=== PATIENT | male | born 1945 | race Caucasian/White ===

== ENCOUNTER → 2018-06-24 | Outpatient (CLI) | payer BC ==
[~2018-06-24] MED LIST: ALLO300T PO; AMLO10TA8 PO; ASPI-630 PO; CARV25TA2 PO; FURO40TA4 PO; HYDR-3165 PO; MULT-505 PO; OMEG1CAP38 PO; POTA20TA82 PO; TRAM50TA PO; UBID100C26 PO; VITA1TAB3 PO; WARF-31 PO; WARF3TAB54 PO; ZICAM NAS
[2018-06-24 09:44] LABS: BASO % 0 % (0-3); EOS # 0.3 x10^3/uL (0.0-0.7); EOS % 3 % (0-3); HEMATOCRIT 50.3 % (39.0-53.0); HEMOGLOBIN 16.9 g/dL (13.0-17.5); LYMPH % 21 % (24-48); MEAN CORPUSCULAR HEMOGLOBIN 32 pg (25-35); MEAN CORPUSCULAR HGB CONC 34 g/dL (31-37); MEAN CORPUSCULAR VOLUME 95 fL (79-100); MONO # 0.9 x10^3/uL (0.0-1.1); MONO % 10 % (0-9); NEUT # 6.5 x10^3uL (1.8-7.7); NEUT % 67 % (31-73); PLATELET COUNT 174 x10^3/uL (140-400); RED BLOOD COUNT 5.28 x10^6/uL (4.30-5.70); RED CELL DISTRIBUTION WIDTH 15.2 % (11.5-14.5); WHITE BLOOD COUNT 9.7 x10^3/uL (4.0-11.0)
[2018-06-24 09:57] LABS: CALCIUM 9.2 mg/dL (8.5-10.1); GFR 73.9; POTASSIUM 3.3 mmol/L (3.5-5.1)
[2018-06-24 09:59] LABS: PROTHROMBIN TIME PATIENT 12.5 SEC (11.7-14.0)
--- NOTE | 2018-06-24 13:18 | EKG ---
[facility] [address] [place] [address] Test Date: 2018-06-24 Test Time: 12:57:51 Pat Name: JAYESH FERNANDES Department: Room: Gender: M Grounds And Nursery Specialist: : [id number] Requested By: DEIDRE NERI Order Number: [id number] Reading MD: Denny Barker MD Measurements Intervals [place] Rate: 76 P: 29 LA: 172 QRS: 31 QRSD: 76 T: 25 QT: 386 QTc: 439 Interpretive Statements SINUS RHYTHM consider anteroseptal infarct Electronically Signed On 06-27-2018 13:15:27 CDT by Denny Barker MD
[2018-06-24 13:44] LABS: BILIRUBIN,URINE NEGATIVE (NEG); CLARITY,URINE CLEAR; COLOR,URINE YELLOW; NITRITE,URINE NEGATIVE (NEG); PH,URINE 5.5; PROTEIN,URINE NEGATIVE (NEG-TRACE); UROBILINOGEN,URINE 0.2 mg/dL (0.2 mg/dL)
[2018-06-24 14:02] LABS: BACTERIA,URINE FEW /HPF (0-FEW); RBC,URINE RARE /HPF (0-2); SQUAMOUS EPITHELIAL CELL,UR OCC /LPF; WBC,URINE OCC /HPF (0-4)
[2018-06-24 14:03] LABS: HYALINE CASTS, URINE MODERATE /HPF
--- NOTE | 2018-06-24 14:47 | RAD ---
CHEST PA LATERAL History: Preoperative evaluation-left knee replacement. Hypertension. Comparison: 05/20/2012 two-view chest x-ray exam. Findings: The cardiomediastinal silhouette is normal. Pulmonary vasculature is normal. The lungs are clear. No pleural effusion or pneumothorax is seen. There is no acute bone abnormality. IMPRESSION: No acute cardiopulmonary process. Electronically signed by: Jed Gentile MD (06/24/2018 2:44 PM) [facility]
== END | disposition home or self-care (01) ==
LOC: SURGPAT 13:00
PROVIDERS: ATTEND Orthopaedic Surgery
DX: Z01.818 Encounter for other preprocedural examination (principal); M17.12 Unilateral primary osteoarthritis, left knee; I10 Essential (primary) hypertension
CPT/HCPCS: 36415; 71046; 80048; 81001; 82040; 82306; 85025; 85610; 85651; 85730; 87641; 93005

== ENCOUNTER 2018-07-09 06:07 | Inpatient (IN) | payer BC ==
[2018-07-08] MEDS: TRANEXAMIC ACID 1,000 MG in IV NS 50ML -- 1ST BAG INJ ONE (07:41)
[2018-07-09] VITALS (10 sets, daily range): BP systolic 121–159; BP diastolic 80–88
[~2018-07-09] VITALS: Ht 152.4 cm; Wt 116.0 kg
[~2018-07-09 06:07] MED LIST changes: -HYDR-3165 PO; +HYDROcodone/APAP 7.5/325MG 1 TAB TABLET PO PRN; +MORPHINE SULFATE 5 MG, KETOROLAC 30MG VIAL 30 MG, ROPIVacaine 0.5% PF 60 ML, EPINEPHrin... INT ART ONE; -WARF-31 PO; -WARF3TAB54 PO
[2018-07-09] MEDS ORDERED: IV RINGERS,LACTATED 1000ML 1,000 ML IV SCH ×2 (06:16→07:00)
[2018-07-09] MEDS ORDERED: fentaNYL PF VIAL 100 MCG/2 ML VIAL IV PRN ×5 (06:30→08:00)
[2018-07-09] MEDS ORDERED: LIDOCAINE 1% PF 2 ML VIAL. ID PRN ×2 (06:30→07:00)
[2018-07-09] MEDS ORDERED: MIDAZOLAM HCL/PF 2 MG/2 ML VIAL. IV PRN (06:30)
[2018-07-09] MEDS ORDERED: POTA20TA82 PO (06:41)
[2018-07-09] MEDS ORDERED: WARF-31 PO (06:43)
[2018-07-09] MEDS ORDERED: LIDOCAINE 2% PF 5 ML VIAL. ONE (06:58)
[2018-07-09] MEDS ORDERED: PROPOFOL 20 ML IV ONE (06:58)
[2018-07-09] MEDS ORDERED: FAMOTIDINE 20 MG/2 ML VIAL ONE (06:58)
[2018-07-09] MEDS ORDERED: ONDANSETRON PF 4 MG/2 ML VIAL. ONE ×2 (06:58)
[2018-07-09] MEDS ORDERED: DEXAMETHASONE SOD PHOS 4 MG/ML VIAL ONE ×2 (06:58)
[2018-07-09] MEDS ORDERED: ONDANSETRON PF 4 MG/2 ML VIAL. IV PRN (07:00)
[2018-07-09] MEDS ORDERED: PROCHLORPERAZINE 10 MG/2 ML VIAL. IV PRN (07:00)
[2018-07-09] MEDS ORDERED: SUCCINYLCHOLINE 200 MG/10 ML VIAL. ONE (07:01)
[2018-07-09] MEDS ORDERED: fentaNYL PF VIAL 100 MCG/2 ML VIAL ONE ×2 (07:01→09:50)
[2018-07-09] MEDS ORDERED: ROCURONIUM 50 MG/5 ML VIAL. ONE (07:01)
[2018-07-09] MEDS ORDERED: IV NORMAL SALINE 1000ML BAG 1,000 ML IV SCH (07:47)
[2018-07-09] MEDS ORDERED: diphenhydrAMINE 50 MG/ML VIAL IV PRN (08:00)
[2018-07-09] MEDS ORDERED: PROCHLORPERAZINE 5 MG TABLET. PO PRN (08:00)
[2018-07-09] MEDS ORDERED: HYDROmorphone 2 MG TABLET PO PRN (08:00)
[2018-07-09] MEDS: FERROUS SULFATE 325 MG TABLET. PO SCH ×2 (08:00→17:01)
[2018-07-09] MEDS ORDERED: MORPHINE SULFATE 2 MG/ML VIAL. IV PRN (08:00)
[2018-07-09] MEDS ORDERED: TRANEXAMIC ACID 1,000 MG in IV NS 50ML -- 2ND BAG INJ ONE (08:00)
[2018-07-09] MEDS ORDERED: ZOLPIDEM 5 MG TABLET. PO PRN (08:00)
[2018-07-09] MEDS ORDERED: 0.9 % SODIUM CHLORIDE 10 ML DISP.SYRIN. IV PRN (08:00)
[2018-07-09] MEDS ORDERED: MORPHINE SULFATE 4 MG/ML VIAL. IV PRN (08:00)
[2018-07-09] MEDS: TRANEXAMIC ACID 1,000 MG in IV NS 50ML -- 1ST BAG INJ ONE (08:00)
[2018-07-09] MEDS ORDERED: CALCIUM CARBONATE 500 MG TAB.CHEW PO PRN (08:00)
[2018-07-09] MEDS ORDERED: DEXTROSE 50% 25 GM / 50ML DISP.SYRIN. IV PRN (08:00)
[2018-07-09] MEDS ORDERED: ePHEDrine PF IN SALINE 50 MG/10 ML SYRINGE. IV ONE (08:07)
[2018-07-09] MEDS: SENNOSIDES/DOCUSATE 8.6/50MG TABLET. PO SCH (09:00)
[2018-07-09] MEDS: MULTIVITAMIN with MINERAL TABLET. PO SCH (09:00)
[2018-07-09] MEDS ORDERED: NEOSTIGMINE METHYLSULFATE 5 MG/5 ML SYRINGE. ONE (09:33)
[2018-07-09] MEDS ORDERED: GLYCOPYRROLATE 1 MG/5 ML VIAL. ONE (09:33)
[2018-07-09] MEDS ORDERED: DESFLURANE > 120 MINUTES IH ONE (09:50)
--- NOTE | 2018-07-09 09:51 | PREOP HP ---
DATE OF SERVICE: 07/09/2018 CHIEF COMPLAINT: Bilateral knee pain, left worse than right. HISTORY OF PRESENT ILLNESS: The patient has had longstanding bilateral knee pain. We had previously talked in his clinical note through risks, benefits, postoperative course of total knee arthroplasty and he is here to proceed today. PAST MEDICAL HISTORY: Significant for hypertension, gout, venous insufficiency, impotence, osteoarthritis, lymphedema, and a right kidney lesion. PAST SURGICAL HISTORY: Meniscus repair on the right knee and appendectomy. FAMILY HISTORY: Noncontributory. SOCIAL HISTORY: Denies smoking. Occasional alcohol consumption and previous marijuana use. MEDICATIONS: List is reviewed. ALLERGIES: Include OXYCODONE. REVIEW OF SYSTEMS: Denies any chest pain, shortness of breath, recent fever, chills or other constitutional symptoms. He took his Coumadin last night. PHYSICAL EXAMINATION: VITAL SIGNS: Per admission sheet, temp afebrile. HEENT: Atraumatic, normocephalic. HEART: Regular rate and rhythm. LUNGS: Clear to auscultation bilaterally. ABDOMEN: Benign. EXTREMITIES: Examination of lower extremities, he has varus deformity, left worse than right. No ligamentous instability; joint line tenderness, medial more so than lateral; severe patellofemoral crepitus bilaterally; normal alignment and stability of bilateral hips and ankles. ASSESSMENT: Bilateral knee pain, left worse than right, primary osteoarthritis of both knees. TREATMENT PLAN: I had previously gone over with him risks, benefits, postoperative course of total knee arthroplasty, recovery process, concerns with possible infection, continued pain, premature wear or loosening, nerve or blood vessel damage, medical or other anesthetic complications among others. He wishes to proceed with left total knee arthroplasty today, which will occur with [facility] admission to follow. DEIDRE NERI MD DR: CRISTHIAN/bere JOB#: [id number] / [id number]
--- NOTE | 2018-07-09 10:05 | PDOC4 ---
Operative Note Operative Note Date of surgery: 07/09/2018 Preoperative diagnosis: Degenerative joint disease left knee Postoperative diagnosis: Same Operative procedure: Left total knee arthroplasty Surgeon: Danny Assist: Swapna Babin anesthesia: Gen. Estimated blood loss: 50 mL Complications: None Specimens: Cartilage surfaces to pathology Operative indications: Tim is a 72-year-old male with bilateral total knee pain long-standing in duration unresponsive to nonoperative measures left worse than right. I had previously discussed with him in clinic operative measures of the total knee arthroplasty and along with risks benefits postoperative course of possible infection nerve or blood vessel damage continued pain premature wear or loosening medical or anesthetic complications among others which were reviewed with him today in conjunction with his updated history and physical he agrees to proceed with surgical evaluation and treatment. Operative text: Patient was identified procedure verified patient placed in the supine position on the operating table. After adequate amounts of general anest hesia were administered a thigh tourniquet was placed and the left upper extremity was prepped and draped in standard sterile fashion. After timeout was performed patient procedure identified and verified the left leg was exsanguinated by Esmarch bandage tourniquet inflated to 250 mm mercury and a midline incision was made and a medial parapatellar approach was carried out fat pad was excised he had significant synovitis which was excised and a synovectomy. Femoral intramedullary drill guide was placed in a standard distal cut femur was sized at a size 7 and anterior posterior chamfer cuts were made menisci were excised tibial cut was initially made but really cut to achieve medial lateral balance as a large medial release was performed but he still remained laterally somewhat loose. After the recut he had perfect balance in flexion and extension as well as side to side with a 15 mm trial. A size 6 journey tibial trial component was placed broached and drilled and a size 35 mm patella was medialized and excess bone trimmed to avoid impingement. Excellent balance and patellofemoral tracking was noted trial components were removed bleeding points controlled by electrocautery and the following components were cemented in place with polymethylmethacrylate cement: A size 6 journey tibial tray a size 7 Oxinium cruciate retaining femoral component and a 35 mm resurfacing patella. Size 15 mm spacer was temporarily placed with the leg in extension after excess cement was removed and following confirmation of the placement and balance a 15 mm spacer was then permanently placed. Thorough irrigation again carried out normal saline solution Hemovac drain and pain catheter were placed. Pain catheter mixture was injected throughout the joint capsule and retinaculum was closed with interrupted #2 Ethibond suture and reinforced with a running #1 strata fix PDS suture subcutaneous closure with buried Vicryl suture subcuticular 30 strata fix Monocryl a carolina dressing with Acticoat was placed toes were noted be warm pink following deflation of the tourniquet patient was returned to recovery room in stable condition having tolerated procedure well. Swapna sapp was present for the procedure assisted in the prepping draping and skin closure. DEIDRE NERI MD July 09, 2018 10:05
--- NOTE | 2018-07-09 11:00 | RAD ---
KNEE LEFT 2V History: Postop.. Comparison with 05/13/2018. There has been a left knee replacement. No aggressive bone destruction or large fracture is seen. Alignment appears grossly anatomic. Postoperative air identified at the joint. Surgical drain is identified. There are vascular calcifications. IMPRESSION: Left knee replacement. Electronically signed by: Chester Hu MD (07/09/2018 10:57 AM) [facility]
--- NOTE | 2018-07-09 11:49 | NUR ---
received from pacu; he is drowsy but answers questions before resuming sleep. he is rating his pain 5/10. ISABELLE and Hemovac and IAC intact. he has good sensation, motion, and pulses bilateral lower extremities. No family present. contact info obtained. 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 close to the desk.
[2018-07-09] MEDS ORDERED: ZICAM NAS PRN (12:00)
[2018-07-09] MEDS: ONDANSETRON ODT 4 MG TAB.RAPDIS. PO SCH ×2 (12:00→17:08)
[2018-07-09] MEDS: ONDANSETRON PF 4 MG/2 ML VIAL. IV SCH ×2 (12:04→17:07)
[2018-07-09] MEDS ORDERED: WARFARIN 7.5 MG TABLET. PO ONE (16:00)
[2018-07-09] MEDS: POTASSIUM CHLORIDE 20 MEQ TABLET.ER. PO SCH (17:01)
[2018-07-09] MEDS: KETOROLAC 30MG VIAL 30 MG, BUPIVACAINE MPF 0.25% 20 ML, EPINEPHrine 0.5 MG in TOTAL VOL... INT ART SCH (17:02)
[2018-07-09] MEDS: CARVEDILOL 12.5 MG TABLET. PO SCH (17:02)
[2018-07-09] MEDS: HYDROcodone/APAP 7.5/325MG 1 TAB TABLET PO PRN (17:07)
--- NOTE | 2018-07-09 18:09 | NUR ---
Papa is feeling better; medicated with Zofran. tolerated supper. up in recliner watching tv. he nausea has eased. continues to rate his pain 4-5.
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
[2018-07-10 02:45] VITALS: BP 130/79
[2018-07-10 05:36] LABS: HEMATOCRIT 43.4 % (39.0-53.0); HEMOGLOBIN 14.7 g/dL (13.0-17.5)
[2018-07-10 05:39] LABS: PROTHROMBIN TIME PATIENT 15.1 SEC (11.7-14.0)
[2018-07-10] MEDS: GABAPENTIN 100 MG CAPSULE. PO SCH ×2 (05:56→17:40)
[2018-07-10] MEDS: KETOROLAC 30MG VIAL 30 MG, BUPIVACAINE MPF 0.25% 20 ML, EPINEPHrine 0.5 MG in TOTAL VOL... INT ART SCH (05:57)
[2018-07-10] MEDS: ONDANSETRON ODT 4 MG TAB.RAPDIS. PO SCH ×2 (05:57)
[2018-07-10] MEDS: ONDANSETRON PF 4 MG/2 ML VIAL. IV SCH ×2 (05:57)
[2018-07-10] MEDS: traMADol 50 MG TABLET PO SCH ×4 (05:57→23:54)
[2018-07-10] MEDS ORDERED: MAGNESIUM HYDROXIDE 2,400 MG/30 ML ORAL.SUSP. PO PRN (06:00)
[2018-07-10 06:31] VITALS: BP 122/73
--- NOTE | 2018-07-10 07:17 | PDOC ---
ORTHO PROGRESS NOTES Subjective Patient states feeling well with minimal complaint of pain. Post-op Day: 1 Procedure L TKA Vitals Vital Signs Date Time Temp Pulse Resp B/P (MAP) Pulse Ox O2 Delivery O2 Flow Rate FiO2 07/10/18 06:59 18 94 Room Air 07/10/18 06:31 98.0 73 122/73 (89) 98.0 07/09/18 19:50 94.0 Labs Laboratory Tests Test 07/09/18 06:45 07/10/18 04:10 07/10/18 04:20 Prothrombin Time 13.0 SEC (11.7-14.0) 15.1 SEC (11.7-14.0) Prothromb Time International Ratio 1.0 (0.8-1.1) 1.2 (0.8-1.1) Activated Partial Thromboplast Time 31 SEC (24-38) Hemoglobin 14.7 g/dL (13.0-17.5) Hematocrit 43.4 % (39.0-53.0) Mean Corpuscular Hemoglobin Concent 34 g/dL (31-37) Laboratory Tests Test 07/10/18 04:10 07/10/18 04:20 Hemoglobin 14.7 g/dL (13.0-17.5) Hematocrit 43.4 % (39.0-53.0) Mean Corpuscular Hemoglobin Concent 34 g/dL (31-37) Prothrombin Time 15.1 SEC (11.7-14.0) Prothromb Time International Ratio 1.2 (0.8-1.1) Notes awake and alert sitting up in chair at bedside Assessment and Plan POD #1 S/P L TKA motor and sensory intact distally calf soft and nontender Pain control and PT CRISS MORA APRN July 10, 2018 07:17
[2018-07-10] MEDS: SENNOSIDES/DOCUSATE 8.6/50MG TABLET. PO SCH (07:56)
[2018-07-10] MEDS: ACETAMINOPHEN 500 MG TABLET PO SCH ×3 (07:56→21:42)
[2018-07-10] MEDS: MULTIVITAMIN with MINERAL TABLET. PO SCH (07:56)
[2018-07-10] MEDS: ASPIRIN CHEWABLE 81 MG TABLET. PO SCH (07:56)
[2018-07-10] MEDS: FUROSEMIDE 40 MG TABLET. PO SCH (07:56)
[2018-07-10] MEDS: ALLOPURINOL 300 MG TABLET. PO SCH (07:56)
[2018-07-10] MEDS: amLODIPine BESYLATE 10 MG TABLET PO SCH (07:57)
[2018-07-10] MEDS: POTASSIUM CHLORIDE 20 MEQ TABLET.ER. PO SCH ×2 (07:57→16:29)
[2018-07-10] MEDS: FERROUS SULFATE 325 MG TABLET. PO SCH ×2 (07:57→16:29)
[2018-07-10] MEDS: CARVEDILOL 12.5 MG TABLET. PO SCH ×2 (07:58→16:30)
[2018-07-10 08:01] VITALS: BP 152/83
[2018-07-10] MEDS: HYDROcodone/APAP 7.5/325MG 1 TAB TABLET PO PRN ×3 (08:46→19:37)
--- NOTE | 2018-07-10 09:05 | NUR ---
Dr. Delgado here to see, questions answered regarding potential travel in [place]
[2018-07-10] MEDS ORDERED: ONDANSETRON ODT 4 MG TAB.RAPDIS. PO PRN (12:00)
[2018-07-10] MEDS ORDERED: ONDANSETRON PF 4 MG/2 ML VIAL. IV PRN (12:00)
--- NOTE | 2018-07-10 13:12 | NUR ---
Pharmacy Warfarin Dosing Note S:Pharmacy consulted to assist with anticoagulation therapy started 07/09/18 with target INR: 1.6 - 2.5 O:JAYESH FERNANDES is a 72 year old M with TKA LABS: Last INR: 1.2 Last HGB: 14.7 Last HCT: 43.4 Last PLT: Last dose of 7.5 mg given on 07/09/18 at 1701 Previous Regimen: Vitamin K given: Drug Interaction Changes: Ongoing Drug Interactions: A:INR of 1.2 is below desired range. Target range for this patient is: 1.6 - 2.5 P: Warfarin dose: 5 mg Today at 1600 Bridge Therapy: None Next INR due 07/11/18 Pharmacy anticoagulation service will continue to follow. CLAUS MORGAN [facility], 07/10/18 5502
--- NOTE | 2018-07-10 15:06 | PATHOLOGY ---
[facility] Accession Number: [id number] . 01 Material submitted: . knee - LEFT KNEE BONE. Modifiers: left . 01 Clinical history: . L DJD . 02 Diagnosis: Segments of bone and soft tissue, left total knee arthroplasty: - Advanced degenerative arthritis. (JPM:[facility] 07/10/2018) QTP/07/10/2018 . 02 Electronically signed: . Heraclio Lizarraga MD, Pathologist NPI- [id number] . 01 Gross description: . The specimen is received in formalin, labeled "Jeffery Mendoza, left knee bone" and consists of multiple segments of pink-cuba bone including the tibial plateau with a small amount of attached yellow tissue measuring 14.0 x 12.3 x 2.5 cm in aggregate. The articular surfaces display areas of eburnation. Osteophytes are present. The meniscus is not identified. Manager Of Regulatory Affairs sections are submitted in A1 following decalcification. (SDY; 07/09/2018) SYU/SYU . 02 Pathologist provided ICD-10: M17.12 . 02 CPT . 633696, [id number] Specimen Comment: A courtesy copy of this report has been sent to Specimen Comment: [phone], . Specimen Comment: Report sent to / DR SOTO Performed at: 01 [facility] [address] [facility] [address] [address], [place] [id number] MD Herman Ansari MD Phone: [phone] Performed at: 02 [facility] [address] [place], [place] [id number] MD Heraclio Lizarraga MD Phone: [phone]
--- NOTE | 2018-07-10 15:09 | NUR ---
Hemovac & IAC discontinued per order, foam dressing applied, tolerated procedure well, GUNJAN hose applied, legs elevated, ice pack on for comfort & edema
[2018-07-10] MEDS ORDERED: WARFARIN 5 MG TABLET. PO ONE (16:00)
[2018-07-10] MEDS ORDERED: BISACODYL 10 MG SUPP.RECT. PR PRN (16:00)
[2018-07-10 16:28] VITALS: BP 139/88
[2018-07-10 17:37] VITALS: BP 136/79
[2018-07-11] MEDS: ACETAMINOPHEN 500 MG TABLET PO SCH ×4 (03:00→20:44)
[2018-07-11 04:08] LABS: HEMATOCRIT 40.9 % (39.0-53.0); HEMOGLOBIN 13.8 g/dL (13.0-17.5)
[2018-07-11 04:15] LABS: PROTHROMBIN TIME PATIENT 21.5 SEC (11.7-14.0)
[2018-07-11] MEDS: GABAPENTIN 100 MG CAPSULE. PO SCH (05:57)
[2018-07-11] MEDS: traMADol 50 MG TABLET PO SCH ×3 (05:57→18:00)
[2018-07-11 06:00] VITALS: BP 145/83
[2018-07-11] MEDS ORDERED: MAGNESIUM HYDROXIDE 2,400 MG/30 ML ORAL.SUSP. PO PRN (08:15)
[2018-07-11] MEDS ORDERED: POLYETHYLENE GLYCOL 3350 17 GM PACKET. PO PRN (08:15)
[2018-07-11 08:18] VITALS: BP 144/88
[2018-07-11] MEDS: FERROUS SULFATE 325 MG TABLET. PO SCH ×2 (08:19→16:09)
[2018-07-11] MEDS: POTASSIUM CHLORIDE 20 MEQ TABLET.ER. PO SCH ×2 (08:19→16:12)
[2018-07-11] MEDS: amLODIPine BESYLATE 10 MG TABLET PO SCH (08:19)
[2018-07-11] MEDS: SENNOSIDES/DOCUSATE 8.6/50MG TABLET. PO SCH (08:19)
[2018-07-11] MEDS: CARVEDILOL 12.5 MG TABLET. PO SCH ×2 (08:20→16:09)
[2018-07-11] MEDS: MULTIVITAMIN with MINERAL TABLET. PO SCH (08:20)
[2018-07-11] MEDS: FUROSEMIDE 40 MG TABLET. PO SCH (08:20)
[2018-07-11] MEDS: ALLOPURINOL 300 MG TABLET. PO SCH (08:20)
[2018-07-11] MEDS: ASPIRIN CHEWABLE 81 MG TABLET. PO SCH (08:21)
--- NOTE | 2018-07-11 11:02 | NUR ---
Pharmacy Warfarin Dosing Note S:Pharmacy consulted to assist with anticoagulation therapy started 07/09/18 with target INR: 1.6 - 2.5 O:JAYESH FERNANDES is a 72 year old M with TKA LABS: Last INR: 1.9 Last HGB: 13.8 Last HCT: 40.9 Last PLT: Last dose of 5 mg given on 07/10/18 at 1629 Previous Regimen: Vitamin K given: Drug Interaction Changes: Ongoing Drug Interactions: A:INR of 1.9 is within desired range. Target range for this patient is: 1.6 - 2.5 P: Warfarin dose: 2 mg Today at 1600 Bridge Therapy: None Next INR due 07/12/18 Pharmacy anticoagulation service will continue to follow. CLAUS MORGAN [facility], 07/11/18 [id number]
[2018-07-11] MEDS ORDERED: WARFARIN 2 MG TABLET. PO ONE (16:00)
[2018-07-11 16:08] VITALS: BP 130/79
[2018-07-11] MEDS: HYDROcodone/APAP 7.5/325MG 1 TAB TABLET PO PRN ×2 (16:09→19:59)
[2018-07-11 17:32] VITALS: BP 124/81
[2018-07-12] MEDS: traMADol 50 MG TABLET PO SCH ×3 (00:16→11:24)
[2018-07-12] MEDS: ACETAMINOPHEN 500 MG TABLET PO SCH ×3 (03:00→14:41)
[2018-07-12 04:59] LABS: HEMATOCRIT 39.2 % (39.0-53.0); HEMOGLOBIN 13.1 g/dL (13.0-17.5)
[2018-07-12 05:06] LABS: PROTHROMBIN TIME PATIENT 21.6 SEC (11.7-14.0)
[2018-07-12 06:00] VITALS: BP 149/86
[2018-07-12] MEDS: FERROUS SULFATE 325 MG TABLET. PO SCH (07:46)
[2018-07-12] MEDS: ASPIRIN CHEWABLE 81 MG TABLET. PO SCH (07:46)
[2018-07-12] MEDS: FUROSEMIDE 40 MG TABLET. PO SCH (07:46)
[2018-07-12] MEDS: SENNOSIDES/DOCUSATE 8.6/50MG TABLET. PO SCH (07:46)
[2018-07-12] MEDS: CARVEDILOL 12.5 MG TABLET. PO SCH (07:49)
[2018-07-12 07:50] VITALS: BP 164/92
[2018-07-12] MEDS: amLODIPine BESYLATE 10 MG TABLET PO SCH (07:50)
[2018-07-12] MEDS: MULTIVITAMIN with MINERAL TABLET. PO SCH (07:51)
[2018-07-12] MEDS: POTASSIUM CHLORIDE 20 MEQ TABLET.ER. PO SCH (07:52)
[2018-07-12] MEDS: ALLOPURINOL 300 MG TABLET. PO SCH (07:52)
[2018-07-12] MEDS: HYDROcodone/APAP 7.5/325MG 1 TAB TABLET PO PRN (12:04)
[2018-07-12] MEDS ORDERED: BISACODYL 10 MG SUPP.RECT. PR PRN (13:15)
[2018-07-12] MEDS ORDERED: WARFARIN 3 MG TABLET. PO ONE (15:00)
--- NOTE | 2018-07-12 15:46 | PDOC ---
PROGRESS NOTES Subjective Subjective Delayed entry from 07/11/2018 Problems overnight: A bit more sore than yesterday and alternating hydrocodone and tramadol for pain Objective Vital Signs Vital Signs Date Time Temp Pulse Resp B/P (MAP) Pulse Ox O2 Delivery O2 Flow Rate FiO2 07/12/18 13:05 Room Air 07/12/18 07:50 83 164/92 07/12/18 06:09 20 07/12/18 06:00 99.8 95 99.8 07/09/18 19:50 94.0 Physical Exam Sylvia dressing intact he has excellent range of motion patellofemoral tracking intact distal neurovascular status, quadriceps weakness as expected Labs Laboratory Tests Test 07/11/18 03:10 07/12/18 04:15 Hemoglobin 13.8 g/dL (13.0-17.5) 13.1 g/dL (13.0-17.5) Hematocrit 40.9 % (39.0-53.0) 39.2 % (39.0-53.0) Mean Corpuscular Hemoglobin Concent 34 g/dL (31-37) 34 g/dL (31-37) Prothrombin Time 21.5 SEC (11.7-14.0) 21.6 SEC (11.7-14.0) Prothromb Time International Ratio 1.9 (0.8-1.1) 1.9 (0.8-1.1) Laboratory Tests Test 07/12/18 04:15 Hemoglobin 13.1 g/dL (13.0-17.5) Hematocrit 39.2 % (39.0-53.0) Mean Corpuscular Hemoglobin Concent 34 g/dL (31-37) Prothrombin Time 21.6 SEC (11.7-14.0) Prothromb Time International Ratio 1.9 (0.8-1.1) Assessment Assessment POD# [2], S/P [left total knee arthroplasty] Plan Plan of Care Continue mobilize with physical therapy standard total knee precautions Likely to need home health as he has little help at home Continue Coumadin anticoagulation, hemoglobin stable DEIDRE NERI MD July 12, 2018 15:46
[2018-07-12] MEDS ORDERED: HYDR-3165 PO (15:50)
--- NOTE | 2018-07-12 15:52 | SNU/HH DC ---
DISCHARGE WITH HOME HEALTH DISCHARGE INFORMATION: Condition on Discharge: Stable CODE STATUS: Code Status: Full HOME HEALTH: Face to Face: I certify this patient is under my care and that I, or a nurse practitioner or physician's recycling assistant working with me, had a face to face encounter that meets the physician face to face encounter requirements with this patient on [07/12/2018]. RN For Eval/Treatment: Yes Physical Therapy For: Evalulation/Treatment Pt Meets Homebound Status: Limited distance walking POST DISCHARGE ORDERS: Activity Instructions for Disc: Progressive ambulation Weight Bearing Status after Di: Full weight bearing Bathing Instructions: Shower-keep dressing dry DIET AFTER DISCHARGE: Regular Wound/Incision Care: Ice to area for comfort, Do not change dressing (maintain isabelle dressing, call if drainage is soaking the visible portion of the dressing) Other wound/incision instructi: DO NOT CHANGE ISABELLE DRESSING. It is to remain in place for 2 weeks. FOLLOW-UP: Follow Up With: Dr Delgado in 10-14 days CERTIFICATION STATEMENT: Certification Statement: Certification Statement: Based on the above finding, I certify that this patient is confined to the home and needs intermittent assisted care, physical therapy and/or speech therapy, or continues to need occupational therapy.~ This patient is under my care, and I have initiated the establishment of the plan of care.~ This patient will be followed by myself or a community physician who will periodically review the plan of care. Home Meds Reported Medications Warfarin Sodium (WARFARIN SODIUM) 5 Mg Tablet, 5 MG PO ONCE for BLOOD THINNER FOR SURGERY, #30 TAB 07/09/18 Potassium Chloride (POTASSIUM CHLORIDE) 20 Meq Tablet.er, 20 MEQ PO BID for POTASSIUM SUPPLEMENT, TAB.SR 07/09/18 Vitamin B Complex (VITAMIN B COMPLEX) 1 Each Tablet, 1 EACH PO DAILY for SUPPLEMENT, TAB 06/21/18 Ubidecarenone (COQ-10) 100 Mg Capsule, 200 MG PO DAILY for SUPPLEMENT, CAP 06/21/18 [place]-3 Fatty Acids/Fish Oil (OMEGA 3 FISH OIL SOFTGEL) 1 Each Capsule.dr, 1 EACH PO DAILY for SUPPLEMENT, CAP 06/21/18 Multivitamin (ONCE DAILY) 1 Each Tablet, 1 EACH PO DAILY for SUPPLEMENT, TAB 06/21/18 Tramadol Hcl (TRAMADOL HCL) 50 Mg Tablet, 50 MG PO Q6HRS PRN for PAIN, TAB 06/21/18 Carvedilol (CARVEDILOL) 25 Mg Tablet, 25 MG PO BIDWMEALS for CARDIAC, TAB 06/21/18 Furosemide (FUROSEMIDE) 40 Mg Tablet, 40 MG PO DAILY for DIURETIC, TAB 06/21/18 Amlodipine Besylate (AMLODIPINE BESYLATE) 10 Mg Tablet, 10 MG PO DAILY for CONTROL BLOOD PRESSURE, TAB 06/21/18 Allopurinol (ALLOPURINOL) 300 Mg Tablet, 300 MG PO DAILY for CONTROL GOUT, TAB 06/21/18 Aspirin (ASPIRIN) 81 Mg Tab.chew, 81 MG PO DAILY for BLOOD THINNER, TAB.CHEW 06/21/18 [Zicam] No Conflict Check, 2 INHALER PHILL PRN PRN for SEE COMMENTS 06/21/18 Discontinued Reported Medications Potassium Chloride (POTASSIUM CHLORIDE) 20 Meq Tablet.er, 20 MEQ PO DAILY for POTASIUM SUPPLEMENT, TAB.SR 06/21/18 DEIDRE DELGADO MD July 12, 2018 15:51
[2018-07-12] MEDS ORDERED: WARF3TAB54 PO (16:09)
--- NOTE | 2018-07-12 16:50 | NUR ---
Patient left the building with all of his belongings around 1650. He left in a private vehicle. Discharge education was completed by this nurse, therapy, pharmacy, and his doctor. No concerns noted upon discharge. Script for norco given to the patient.
--- NOTE | 2018-07-13 00:03 | DS ---
DATE OF DISCHARGE: 07/12/2018 PRINCIPAL DIAGNOSIS: Degenerative joint disease, left knee. PROCEDURE: Left total knee arthroplasty. DISCHARGE: Home with home health follow. DISPOSITION MEDICATIONS: Include [place] 7.5/325 one p.o. q. 4 hours p.r.n. pain, dispensed #60. Coumadin is to be monitored by Anticoagulation Clinic. Maintain preoperative medications. ACTIVITIES: Weightbearing as tolerated, standard total knee protocol and precautions. Maintain ISABELLE drain. Call if edges of dressing are saturated, any fever, chills, redness, uncontrolled pain or other problems. Follow up with Dr. Delgado in 2 weeks postoperatively. BRIEF DESCRIPTION OF HOSPITAL COURSE: The patient underwent uncomplicated left total knee arthroplasty. Immediately postoperatively, was needing IV pain medications. On postoperative day #1, noted that his pain was much better controlled. The knee felt better than it did preoperatively and he was well controlled on oral pain medication. He got up and around well with physical therapy and knee motion advanced well. On postoperative day #2, he was more sore and requiring a combination of hydrocodone and tramadol for alternating for pain relief. Hemoglobin remained stable. Coumadin anticoagulation was monitored by the pharmacy and on postoperative day #3, he had some continued stiffness and was planned for discharge with home health due to some assistance that he needs in his home and inability to reliably get out and drive or go to outpatient physical therapy. It was noted that he did need inpatient admission due to his history of hypertension, lymphedema, venous insufficiency and a right kidney lesion, all of which in my judgment underwent required inpatient monitoring. He was discharged in stable condition with planned home health. DEIDRE DELGADO MD DR: CRISTHIAN/bere JOB#: [id number] / [id number] Chester Henry MD
== END 2018-07-12 16:50 | disposition home health service (06) | DRG 470 ==
LOC: OPSVCIP 06:07 → 4 SOUTHEST 11:17
PROVIDERS: ADMIT Orthopaedic Surgery; ATTEND Orthopaedic Surgery
PROC: 0SRD069 Replacement of Left Knee Joint with Oxidized Zirconium on Polyethylene Synthetic Substitute, Cemented, Open Approach (ICD-10-PCS; principal; 2018-07-09 07:30)
DX: M17.0 Bilateral primary osteoarthritis of knee (principal); I10 Essential (primary) hypertension; M65.9 Synovitis and tenosynovitis, unspecified; Z90.49 Acquired absence of other specified parts of digestive tract; Z88.8 Allergy status to other drugs, medicaments and biological substances
CPT/HCPCS: 36415; 73560; 85014; 85018; 85610; 85730; 86850; 86900; 86901; 88305; 88311; A7015; C1713; J0171; J0330; J0696; J0780; J1100; J1885; J2001; J2270; J2405; J2704; J2710; J2795; J3010; J3490; J7030; J7120; Q0162; 97116; 97150; 97530; 97535; C1769

== ENCOUNTER → 2021-03-21 | Outpatient (CLI) | payer BC ==
[~2021-03-21] MED LIST changes: +AMLO-187 PO; -AMLO10TA8 PO; +HYDR-3165 PO; -HYDROcodone/APAP 7.5/325MG 1 TAB TABLET PO PRN; -MORPHINE SULFATE 5 MG, KETOROLAC 30MG VIAL 30 MG, ROPIVacaine 0.5% PF 60 ML, EPINEPHrin... INT ART ONE; +POTA20TA4 PO; -POTA20TA82 PO; +REGADENOSON 0.4 MG/5 ML DISP.SYRIN. IV ONE; +WARF-31 PO; +WARF3TAB54 PO
--- NOTE | 2021-03-21 13:10 | RAD ---
MR#: [id number] Date of Study: 03/21/2021 Ordering Physician: DMITRIY MAGUIRE, Referring Physician: RENÉ GONZALEZ Tech: RT Rolando Landon) (N) APPROVED REPORT Test Type: Pharmacological Stress Nurse/Tech: Yasemin Torres R.N. Test Indications: chest pain Cardiac History: Htn,obese Medications: See Electronic Medical Record Medical History: See Electronic Medical Record Resting ECG: SR Resting Heart Rate: 70 bpm Resting Blood Pressure: 128/74mmHg Pretest Chest Pain: No chest pain Nurse/Tech Notes S1S2, lungs CTA Consent: The procedure was explained to the patient in lay terms. Informed consent was witnessed. Jose F eout was entered into [facility]ml[facility]. History and Stress Test performed by RT Barbi (R) (N) Pharm. Details Pharmacologic stress testing was performed using 0.4mg per 5ml of regadenoson given intravenously ove r 7-10 seconds. Stress Symptoms SOA POST EXERCISE Reason for Termination: Infusion complete Max HR: 101 bpm Max Blood Pressure: 133/78mmHg Blood Pressure response to exercise: Normal blood pressure response during stress. Heart Rate response to exercise: wnl Chest Pain: No. Arrhythmia: No. ST Change: No. INTERPRETATION Stress EKG Conclusion: The resting EKG shows a sinus rhythm with mild nonspecific ST-T wave changes. The stress EKG shows no significant changes from baseline. No EKG evidence of stress-induced ischemia. Imaging Protocol IMAGE PROTOCOL: Rest Tc-99m/stress Tc-99m 1 day Rest: Stress: Viability: Radiopharm.Tc99m KvsneltxiJp94p Sestamibi Dose10.4mCi 30mCi Duration 15min. 10min. Img Date 03/21/2021 03/21/2021 Inj-Img Gbml58cue. 60min. Rest Admin Site:IV - Left HandAdministrator:ANDREW Shaw, ARRT (R)(N) Stress Admin Site: IV - Left HandAdministrator: ANDREW Shaw, ARRT (R)(N) STRESS DATA End Diast. Vol.81.0mlAv. Heart Rate82.0bpm End Syst. Vol.15.0mlCO Index BSA0.0L/min Myocardial Bhqb339.0gEject. Hgxviytx34.0% Stress Rates Pk. Fill Rate4.01EDV/secLVtime Pk. Fill 202.64msec Pk. Empty Rate5.12ESV/secLVtime Pk. Sylpb303.44msec 1/3 Pk. Fill1.03EDV/sec Stress Scores Regional WT1.00Summed WT8.00 Regional WM0.00Summed WM1.00 LV Perfusion The stress scans showed no significant defects. The rest scans showed no significant defects. Nuclear imaging shows no reversible ischemia or infarct. Wall Motion Left ventricular systolic function is normal with an ejection fraction of greater than 70%. LV Perf. Quant 17 Seg. SSS5.00 17 Seg. SRS3.00 17 Seg. SDS2.00 Stress Defect Extent (% LAD)0.00Rest Defect Extent (% LAD)0.00Rev. Defect Extent (% LAD)0.00 Stress Defect Extent (% LCX) 45.00Rest Defect Extent (% LCX)25.00Rev. Defect Extent (% LCX)5.00 Stress Defect Extent (% RCA)0.00Rest Defect Extent (% RCA)0.00Rev. Defect Extent (% RCA)0.00 Stress Defect Extent (% REINA)8.70Rest Defect Extent (% REINA)5.00Rev. Defect Extent (% REINA)0.90 Conclusion 1. No EKG evidence of stress-induced ischemia. 2. Nuclear imaging shows no reversible ischemia or infarct. 3. Normal left ventricular systolic function with an ejection fraction of greater than 70%. 4. Low risk Lexiscan nuclear stress test. Signed by : Kenny Gallego MD Electronically Approved : 03/21/2021 13:10:28
--- NOTE | 2021-03-22 17:19 | CARD ---
MR#: [id number] Date of Study: 03/21/2021 Ordering Physician: DMITRIY MAGUIRE, Referring Physician: Linda GONZALEZ: Francisco Brandt [facility] APPROVED REPORT EXAM: Two-dimensional and M-mode echocardiogram with Doppler and color Doppler. Other Information Quality : FairHR: 77bpm Rhythm : NSR INDICATION Chest Pain RISK FACTORS Hypertension Obesity 2D DIMENSIONS Left Atrium(2D)3.6 (1.6-4.0cm)IVSd1.1 (0.7-1.1cm) Aortic Root(2D)3.2 (2.0-3.7cm)LVDd4.7 (3.9-5.9cm) LVOT Diameter2.3 (1.8-2.4cm)PWd1.1 (0.7-1.1cm) LVDs2.3 (2.5-4.0cm)FS (%) 50.6 % SV81.8 ml Aortic Valve AoV Peak Olayinka.145.6cm/sAoV VTI27.8cm AO Peak GR.8.5mmHgLVOT Peak Olayinka.85.4cm/s AO Mean GR.4mmHgAVA (VMAX)2.38cm2 Mitral Valve MV E Tsixueqx73.3cm/sMV E Peak Gr.4mmHg MV DECEL [id number] A Afgwsjuz941.3cm/s MV E Mean Gr.1mmHgE/A Ratio0.6 Pulmonary Valve PV Peak Azedrljk09.2cm/s Tricuspid Valve TR P. Jfufhhqc203pc/sTR Peak Gr.17mmHg Pulmonary Vein S1 Spdnuazy72.7cm/sD2 Crafprck92.4cm/s LEFT VENTRICLE The left ventricle is normal size. There is normal left ventricular wall thickness. The left ventricu lar systolic function is normal and the ejection fraction is within normal range. LV ejection fractio n of 55 to 60%. There is normal LV segmental wall motion. No left ventricle thrombus noted on this st udy. There is no ventricular septal defect visualized. There is no left ventricular aneurysm. There i s no mass noted in the left ventricle. RIGHT VENTRICLE The right ventricle is normal size. There is normal right ventricular wall thickness. The right ventr icular systolic function is normal. ATRIA The left atrium is mildly dilated. The right atrium size is normal. The interatrial septum is intact with no evidence for an atrial septal defect or patent foramen ovale as noted on 2-D or Doppler imagi ng. AORTIC VALVE The aortic valve is normal in structure and function. Doppler and Color Flow revealed no significant aortic regurgitation. There is no significant aortic valvular stenosis. There is no aortic valvular v egetation. MITRAL VALVE The mitral valve is normal in structure and function. There is no evidence of mitral valve prolapse. There is no mitral valve stenosis. Doppler and Color Flow revealed trace mitral valve regurgitation. TRICUSPID VALVE The tricuspid valve is normal in structure and function. Doppler and Color Flow revealed no tricuspid valve regurgitation noted. There is no tricuspid valve prolapse or vegetation. There is no tricuspid valve stenosis. PULMONIC VALVE The pulmonary valve is normal in structure and function. Doppler and Color Flow revealed no pulmonic valvular regurgitation. There is no pulmonic valvular stenosis. GREAT VESSELS The aortic root is normal in size. The ascending aorta is normal in size. The pulmonary artery is nor mal. The IVC is normal in size and collapses >50% with inspiration. PERICARDIAL EFFUSION There is no pleural effusion. There is no evidence of significant pericardial effusion. Critical Notification Critical Value: No <Conclusion> The left ventricle is normal size. The left ventricular systolic function is normal and the ejection fraction is within normal range. LV ejection fraction of 55 to 60%. There is normal LV segmental wall motion. Doppler and Color Flow revealed no significant aortic regurgitation. There is no significant aortic valvular stenosis. Doppler and Color Flow revealed trace mitral valve regurgitation. Doppler and Color Flow revealed no tricuspid valve regurgitation. Signed by : Kenny Gallego MD Electronically Approved : 03/22/2021 17:18:42
== END ==
LOC: NM 07:35
PROVIDERS: ATTEND Internal Medicine Cardiovascular Disease
DX: R07.9 Chest pain, unspecified (principal)
CPT/HCPCS: 78452; 93017; 93306; A9500; J2785; C8929